=== PATIENT | male | born 1970 | race Caucasian/White ===

== ENCOUNTER → 2018-12-12 | Outpatient (REF) | payer BC ==
[2018-12-12 19:49] LABS: APPEARANCE, URINE CLEAR (CLEAR); BACTERIA, URINE AUTO NEGATIVE (NEGATIVE); BILIRUBIN, URINE AUTO NEGATIVE (NEGATIVE); BLOOD, URINE BLOOD NEGATIVE (NEGATIVE); CALCIUM OXALATE CRYSTALS SMALL; COLOR, URINE YELLOW (YELLOW); GLUCOSE, URINE (UA) AUTO NEGATIVE (NEGATIVE); KETONE, URINE AUTO NEGATIVE (NEGATIVE); LEUKOCYTE ESTERASE, URINE AUTO NEGATIVE (NEGATIVE); MUCUS, URINE SMALL (NEGATIVE); NITRITE, URINE AUTO NEGATIVE (NEGATIVE); PROTEIN, URINE AUTO NEGATIVE (NEGATIVE); RBC, URINE AUTO 1 /HPF (0-3); SQUAMOUS EPITHELIAL CELL UR AU 0 /HPF (0-6); UROBILINOGEN, URINE AUTO 0.2 mg/dL (0.0-2.0); WBC, URINE AUTO 0 /HPF (0-3)
== END ==
LOC: M SMT 18:06
PROVIDERS: ATTEND Nurse Practitioner Women's Health
DX: N50.812 Left testicular pain (principal)

== ENCOUNTER → 2018-12-20 | Outpatient (CLI) | payer BC ==
--- NOTE | 2018-12-20 14:37 | REP ---
Clinical: Nonacute left scrotal/testicular pain. Technique: Time trinh scale and color Doppler evaluation using linear high frequency and curved array transducers. Findings: The bilateral testicles and epididymi are relatively normal in contour, size, echogenicity and vascularity without evidence for intratesticular mass lesion, infectious/inflammatory process, or torsion. Right testicle measures 4.0 x 2.5 x 3.2 cm with incidental 4 mm epididymal head cyst and solitary microcalcification. Left testicle measures 4.4 x 2.5 x 3.4 cm. No varicoceles identified. There is a small complex left hydrocele with septations in the region of the patient's maximal tenderness suggesting the possibility of recent and possibly resolving infectious/inflammatory process. Impression: 1. Essentially normal bilateral testicles and epididymi. 2. In relation to the patient's pain, there is a small mildly complex left hydrocele which may reflect resolving infectious/inflammatory or traumatic process. Electronically Signed by Rory Haley MD 12/20/2018 02:28 P
== END ==
LOC: M RAD 13:00 → EDUNIT# 13:30
PROVIDERS: ATTEND Nurse Practitioner Women's Health
DX: N50.812 Left testicular pain (principal); N43.3 Hydrocele, unspecified

== ENCOUNTER → 2019-02-03 | Outpatient (CLI) | payer BC ==
[~2019-02-03] MED LIST: PROHANCE 279.3MG/ML 15ML VIAL (A9576) As Ordered ONE
--- NOTE | 2019-02-03 16:56 | REP ---
MRI PELVIS WITH AND WITHOUT CONTRAST: TECHNIQUE: Multiple sequences were obtained in the axial, coronal and sagittal planes prior to and following the intravenous administration of 14.4 mL ProHance. Comparison is made with a scrotal ultrasound 12/20/2018. The osseous structures of the pelvis demonstrate normal bone marrow signal. There is no bone marrow edema or occult fracture. There is no abnormal marrow enhancement. Within the pelvis no mass or adenopathy is seen. No fluid collection is seen. There is trace free fluid which is of doubtful significance. There is a small left hydrocele in the scrotum. There appears to be a left inguinal hernia containing fat, which is relatively small. No right inguinal hernia is seen. IMPRESSION: No mass in the pelvis. Trace free fluid is of doubtful significance. Small left inguinal hernia contains fat. Small left hydrocele. Electronically Signed by Fracisco Hall MD 02/06/2019 04:14 P
== END ==
LOC: M RAD 10:34
PROVIDERS: ATTEND Nurse Practitioner Family
DX: N50.812 Left testicular pain (principal)
CPT/HCPCS: 72197; A9576